=== PATIENT | male | born 1965 | race Caucasian/White ===

== ENCOUNTER 2023-03-03 10:19 | Emergency (ER) | payer MEDICAID ==
[~2023-03-03] VITALS: Ht 182.9 cm; Wt 97.7 kg
[2023-03-03] MEDS ORDERED: GABA-1181 PO (10:40)
[2023-03-03] MEDS ORDERED: ACETAMINOPHEN 325 MG TABLET PO ONE (12:45)
[2023-03-03] MEDS ORDERED: LIDOCAINE 5% TRANSDERMAL PATCH TD ONE (12:45)
[2023-03-03] MEDS ORDERED: KETOROLAC TROMETHAMINE 30 MG/ML VIAL IM ONE (12:45)
[2023-03-03] MEDS ORDERED: LIDO1ADH83 TP (14:11)
[2023-03-03] MEDS ORDERED: ACET-784 PO (14:11)
[2023-03-03 15:08] VITALS: BP 141/77
== END 2023-03-03 15:11 | disposition home or self-care (01) ==
LOC: EMS 10:25
DX: G62.9 Polyneuropathy, unspecified (principal); F10.20 Alcohol dependence, uncomplicated; F17.210 Nicotine dependence, cigarettes, uncomplicated; Z88.0 Allergy status to penicillin
CPT/HCPCS: 99283; 82962; 96372; J1885